=== PATIENT | male | born 1995 | race African-American/Black ===

== ENCOUNTER 2017-12-16 12:51 | Emergency (ER) | payer OTHER ==
[2017-12-16] MEDS ORDERED: IPRATROPIUM-ALBUTEROL 3 ML NEB INHALATION STA (13:06)
--- NOTE | 2017-12-16 13:18 | ED ---
URI HPI - General Chief Complaint: Upper Respiratory Infection Stated Complaint: vomiting/cough Time Seen by Provider: 12/16/17 12:59 Source: patient, RN notes reviewed Mode of arrival: ambulatory Limitations: no limitations - History of Present Illness Initial Comments: This is a 22-year-old male who presents to the emergency department with chief complaint of fever and cough. Patient states that he has been feeling unwell for the past 3-4 days. He states that he believes he may have the flu. He states he has a sore throat, cough and fevers that reached a high of 102. He states that he has been taking Tylenol. He took DayQuil this morning. Patient states that he has also had a couple episodes of vomiting up food. He states that he has had a decreased appetite but is still able to keep down fluids. He states he has also had some diarrhea. Denies any abdominal pain. Denies chest pain or shortness of breath. Patient states that he does have a history of asthma and has been wheezing lately, this is worse while laying down at night. He states that he does not have an albuterol inhaler and has not been doing any at-home nebulizer treatments. - Related Data Previous Rx's Medication Instructions Recorded Albuterol Inhaler [Ventolin Hfa 1 - 2 puff INHALATION Q6HR PRN #1 12/16/17 Inhaler] inhaler Azithromycin [Zithromax Z-pack] 0 mg PO DIRECTED #6 tab 12/16/17 predniSONE 20 mg PO BID #10 tab 12/16/17 Allergies Allergy/AdvReac Type Severity Reaction Status Date / Time No Known Allergies Allergy Verified 12/16/17 12:56 Review of Systems ROS Statement: Those systems with pertinent positive or pertinent negative responses have been documented in the HPI. ROS Other: All systems not noted in ROS Statement are negative. Past Medical History Past Medical History: No Reported History History of Any Multi-Drug Resistant Organisms: None Reported Past Surgical History: No Surgical Hx Reported Past Psychological History: No Psychological Hx Reported Smoking Status: Never smoker Past Alcohol Use History: None Reported Past Drug Use History: None Reported General Exam - General Exam Comments Initial Comments: General: Awake and alert, well-developed; in no apparent distress. Wearing a mask. HEENT: Head atraumatic, normocephalic. Pupils are equal, round and reactive to light. Extraocular movements intact. Oropharynx moist without erythema or exudate. Neck: Supple. Normal ROM. Cardiovascular: Regular rate and rhythm. No murmurs, rubs or gallops. Chest symmetrical. Respiratory: Normal respiratory effort with no use of accessory muscles. Wheezes left lower lobe. No rales or rhonchi. Abdomen: Soft, non-tender, non-distended. No rigidity, rebound or guarding. Musculoskeletal: Normal ROM, no tenderness bilateral upper and lower extremities. Ambulating normally. Skin: [place], warm and dry without rashes or lesions. Neurological: Alert and oriented x3. CN II-XII grossly intact. Speech is fluent and answers are appropriate. No focal neuro deficits. Psychiatric: Normal mood and affect. No overt signs of depression or anxiety noted. Limitations: no limitations Course Vital Signs 12/16/17 12/16/17 12/16/17 12:53 13:32 13:39 Temperature 98.5 F Pulse Rate 109 H 108 H 102 H Respiratory 18 Rate Blood Pressure 118/77 O2 Sat by Pulse 95 Oximetry Medical Decision Making - Medical Decision Making This is a 22-year-old male who presents to the emergency department with chief complaint of fever and cough. On initial physical examination, patient has wheezes in the left lower lobe. After treatment with a DuoNeb, patient continues to have wheezing in the left lung. He is in no acute respiratory distress. Vital signs are stable. Chest x-ray revealed no acute abnormalities. Patient tested negative for influenza. He'll be treated for asthmatic bronchitis with azithromycin, oral steroids and an albuterol inhaler. Patient is in no acute distress and will be discharged home. He is in agreement with plan and voices understanding. All questions were answered. - Lab Data Lab Results 12/16/17 Range/Units 13:19 Influenza Type A RNA Not Detected (Not Detectd) Influenza Type B (PCR) Not Detected (Not Detectd) - Radiology Data Radiology results: report reviewed Chest x-ray findings: The heart size is normal. The pulmonary vasculature is normal. Lungs are clear. Impression: No acute pulmonary process. Disposition Clinical Impression: Asthmatic bronchitis Disposition: HOME SELF-CARE Condition: Good Instructions: Acute Bronchitis (ED), Wheezing (ED) Additional Instructions: Please take medications as prescribed. Please follow up with primary care provider within 1-2 days. Return to emergency department if symptoms should worsen or any concerns arise. Prescriptions: Albuterol Inhaler [Ventolin Hfa Inhaler] 1 - 2 puff INHALATION Q6HR PRN #1 inhaler PRN Reason: Dyspnea Azithromycin [Zithromax Z-pack] 0 mg PO DIRECTED #6 tab predniSONE 20 mg PO BID #10 tab Referrals: None,Stated [Primary Care Provider] - 1-2 days Time of Disposition: 14:12
--- NOTE | 2017-12-16 13:26 | XR ---
EXAMINATION TYPE: XR chest 2V DATE OF EXAM: 12/16/2017 COMPARISON: NONE INDICATION: Pain cough congestion fever flulike symptoms TECHNIQUE: Frontal and lateral views of the chest are obtained. FINDINGS: The heart size is normal. The pulmonary vasculature is normal. The lungs are clear. IMPRESSION: 1. No acute pulmonary process.
[2017-12-16] MEDS ORDERED: ACETAMINOPHEN TAB 325 MG TAB PO STA (14:18)
[2017-12-16] MEDS ORDERED: IBUPROFEN 600 MG TAB PO STA (14:18)
[2017-12-16 14:26] VITALS: BP 135/83; PULSE 121; RESP 16; TEMP 101.4
== END 2017-12-16 14:25 | disposition home or self-care (01) ==
LOC: EC 12:51
DX: J45.909 Unspecified asthma, uncomplicated (principal); R11.10 Vomiting, unspecified; R19.7 Diarrhea, unspecified
CPT/HCPCS: 71046; 87502; 94640; 99284

== ENCOUNTER 2022-01-20 16:38 | Emergency (ER) | payer OTHER ==
[2022-01-20 17:56] VITALS: PULSE 95; RESP 20; TEMP 97.1
[2022-01-20] MEDS ORDERED: IBUPROFEN 400 MG TAB PO STA (19:43)
--- NOTE | 2022-01-20 19:45 | ED ---
URI HPI - General Chief Complaint: Upper Respiratory Infection Stated Complaint: possible sinus infection Time Seen by Provider: 01/20/22 19:29 Source: patient, RN notes reviewed Mode of arrival: ambulatory Limitations: no limitations - History of Present Illness Initial Comments: This is a pleasant 20 sectional male comes to the ER complaining of a stuffy nose, generalized body aching and mild cough for the past 3 or 4 days. Patient took a few days off work and needs a work note. He is denying any airway pounds. No chest pain. Has not been taking ibuprofen and Tylenol. Not immunized against COVID-19. Cough. No abdominal pain. No nausea vomiting. No change in bowel movements or urination. No significant headache or earache. Mild sore throat but no difficulty swallowing. Clear runny nose.No significant past medical history. Social history reviewed. MD Complaint: fever, cough, rhinorrhea, nasal congestion - Related Data Previous Rx's Medication Instructions Recorded Albuterol Inhaler (Mhu) [Ventolin 1 - 2 puff INHALATION Q6HR PRN #1 12/16/17 Hfa Inhaler (Mhu)] inhaler Azithromycin [Zithromax Z-pack (6 0 mg PO DIRECTED #6 tab 12/16/17 tabs)] predniSONE [Deltasone] 20 mg PO BID #10 tab 12/16/17 Acetaminophen [Tylenol] 500 mg PO Q4-6H PRN #24 tab 01/20/22 Ibuprofen [Motrin] 600 mg PO Q8HR PRN #30 tab 01/20/22 Allergies Allergy/AdvReac Type Severity Reaction Status Date / Time No Known Allergies Allergy Verified 01/20/22 17:54 Review of Systems ROS Statement: Those systems with pertinent positive or pertinent negative responses have been documented in the HPI. ROS Other: All systems not noted in ROS Statement are negative. Past Medical History Past Medical History: No Reported History History of Any Multi-Drug Resistant Organisms: None Reported Past Surgical History: No Surgical Hx Reported Past Psychological History: No Psychological Hx Reported Smoking Status: Never smoker Past Alcohol Use History: None Reported Past Drug Use History: None Reported General Exam - General Exam Comments Initial Comments: Nontoxic-appearing 26-year-old male in no distress. Vital signs stable, patient afebrile. Limitations: no limitations General appearance: alert, in no apparent distress Head exam: Present: atraumatic, normocephalic, normal inspection Eye exam: Present: normal appearance, PERRL, EOMI. Absent: scleral icterus, conjunctival injection, periorbital swelling ENT exam: Present: normal exam, normal oropharynx, mucous membranes moist, TM's normal bilaterally, normal external ear exam, other (No TM erythema. No tonsillar adenopathy. No evidence of intraoral cellulitis. No tonsillitis. Airway is patent). Absent: mucous membranes dry Neck exam: Present: normal inspection, full ROM. Absent: tenderness, meningismus, lymphadenopathy Respiratory exam: Present: normal lung sounds bilaterally. Absent: respiratory distress, wheezes, rales, rhonchi, stridor Cardiovascular Exam: Present: regular rate, normal rhythm, normal heart sounds. Absent: systolic murmur, diastolic murmur, rubs, gallop, clicks GI/Abdominal exam: Present: soft, normal bowel sounds. Absent: distended, tenderness, guarding, rebound, rigid Extremities exam: Present: normal inspection, full ROM, normal capillary refill. Absent: tenderness, pedal edema, joint swelling, calf tenderness Back exam: Present: normal inspection Neurological exam: Present: alert, oriented X3, CN II-XII intact Psychiatric exam: Present: normal affect, normal mood Skin exam: Present: warm, dry, intact, normal color. Absent: rash Course Vital Signs 01/20/22 17:54 Temperature 97.1 F L Pulse Rate 95 Respiratory 20 Rate O2 Sat by Pulse 98 Oximetry Medical Decision Making - Medical Decision Making Patient symptomology most consistent with a viral upper respiratory infection. No evidence of bacterial infection. Vital signs stable, patient afebrile. COVID-19 testing is negative. Been present for 4-5 days. Work note given. We did discuss the possibility of secondary infection or worsening symptoms. Patient knows to return. Influenza possible but would not change the current treatment as he is outside the 48-hour window. Patient was told to return to the ER for any signs or symptoms worsen. Told to return immediately if any other problems arise. All questions answered. Treatment plan discussed. Patient in agreement Every effort has been made to ensure accuracy of this dictation. However, due to the limitations of electronic medical records and dictation devices, errors in charting still occur. - Lab Data Lab Results 01/20/22 Range/Units 17:56 Coronavirus (PCR) Not Detected (Not Detectd) Disposition Clinical Impression: Viral URI Disposition: HOME SELF-CARE Condition: Good Instructions (If sedation given, give patient instructions): Upper Respiratory Infection (ED) Additional Instructions: Follow-up with your regular physician as directed. Return to the ER immediately if any symptoms worsen, new symptoms arise, or any other problems develop. Prescriptions: Ibuprofen [Motrin] 600 mg PO Q8HR PRN #30 tab PRN Reason: Pain Acetaminophen [Tylenol] 500 mg PO Q4-6H PRN #24 tab PRN Reason: Pain Is patient prescribed a controlled substance at d/c from ED?: No Referrals: Socratse Damian [STAFF PHYSICIAN] - 01/27/22 Time of Disposition: 19:44
== END 2022-01-20 20:05 | disposition home or self-care (01) ==
LOC: EC 16:38
DX: J06.9 Acute upper respiratory infection, unspecified (principal); Z20.822 Contact with and (suspected) exposure to COVID-19
CPT/HCPCS: 87635; 99283